=== PATIENT | male | born 1935 | race Caucasian/White ===

== ENCOUNTER 2017-04-05 20:04 | Emergency (ER) | payer MEDICARE ==
--- NOTE | 2017-04-05 20:10 | UC ---
Throat Pain/Nasal Tadeo HPI - HPI Summary HPI Summary: 82 YEAR OLD MALE PRESENTS WITH COMPLAINS OF INABILITY TO SWALLOW LIQUIDS AND SOLIDS. - History of Current Complaint Stated Complaint: THROAT COMPLAINT Time Seen by Provider: 04/05/17 20:09 Hx Obtained From: Patient Onset/Duration: Sudden Onset Severity: Severe Pain Scale Used: 0-10 Numeric - 5 Cough: Nonproductive Associated Signs & Symptoms: Positive: Dysphagia - Allergies/Home Medications Allergies/Adverse Reactions: Allergies Allergy/AdvReac Type Severity Reaction Status Date / Time No Known Allergies Allergy Verified 04/05/17 20:12 PMH/Surg Hx/FS Hx/Imm Hx Previously Healthy: Yes - Surgical History Surgical History: Yes Surgery Procedure, Year, and Place: 2008 BACK SURGERY FOR PINCHED NERVE, [facility] - Social History Alcohol Use: Rare Substance Use Type: None Smoking Status (MU): Never Smoked Tobacco Have You Smoked in the Last Year: No - Immunization History Most Recent Influenza Vaccination: Fall 2012 Most Recent Tetanus Shot: unknown Most Recent Pneumonia Vaccination: 3 or 4 years ago Review of Systems Constitutional: Negative Skin: Negative Eyes: Negative ENT: Sore Throat, Other - DYSPHAGIA Respiratory: Negative Cardiovascular: Negative Gastrointestinal: Negative Genitourinary: Negative Motor: Negative Neurovascular: Negative Musculoskeletal: Negative Neurological: Negative Psychological: Negative All Other Systems Reviewed And Are Negative: Yes Physical Exam Triage Information Reviewed: Yes Vital Signs Reviewed: Yes Eye Exam: Normal ENT: Positive: Pharyngeal erythema, Other: - UVULA SWELLING Dental Exam: Normal Neck exam: Normal Neck: Positive: 1 Respiratory Exam: Normal Cardiovascular Exam: Normal Abdominal Exam: Normal Musculoskeletal Exam: Normal Neurological Exam: Normal Psychological Exam: Normal Skin Exam: Normal Throat Pain/Nasal Course/Dx - Differential Dx/Diagnosis Provider Diagnoses: DYSPHAGIA. UVULA SWELLING Discharge - Discharge Plan Condition: Stable Disposition: HOME Patient Education Materials: Dysphagia (ED) Referrals: Ryan Ruth MD [Primary Care Provider] - If Needed Additional Instructions: PLEASE GO TO ER TO ASSESS INABILITY TO SWALLOW LIQUIDS AND SOLIDS.
[2017-04-05 20:27] VITALS: BP 175/86
== END 2017-04-05 20:30 | disposition home or self-care (01) ==
LOC: UCEAST 20:04
DX: R13.10 Dysphagia, unspecified (principal); K13.79 Other lesions of oral mucosa
CPT/HCPCS: 99211; G0463

== ENCOUNTER 2017-04-05 20:45 | Emergency (ER) | payer MEDICARE ==
[2017-04-05] MEDS ORDERED: Glucagon* 1 MG VIAL IV ONE (22:43)
[2017-04-05] MEDS ORDERED: NS 0.9% 1000 ML* 1,000 ML IV SCH (22:45)
--- NOTE | 2017-04-06 00:35 | ED ---
Sasha Mujica Alfonso, scribed for Saman Carpenter MD on 04/05/17 at 2234 . Complex/Multi-Sys Presentation - HPI Summary HPI Summary: This patient is an 82 year old M presenting from [facility] to [facility] accompanied by son with a chief complaint of I cant swallow since approximately 1800 today. The CC began while eating popcorn. The patient rates the pain 0/10 in severity. Symptoms aggravated and alleviated by nothing. Patient reports hic-burp ( hiccup and burping at the same time), and frosting at the mouth. Patient denies chest tightness, SOB, abdominal pain. He denies abdominal PSHx. PMHx of HTN. - History Of Current Complaint Chief Complaint: EDGeneral Time Seen by Provider: 04/05/17 22:18 Hx Obtained From: Patient, Family/Water Rights Specialist - Son Onset/Duration: Sudden Onset, Lasting Hours - 1600 today, Still Present Timing: Constant Severity Currently: Moderate Severity Initially: Moderate Aggravating Factor(s): Nothing. Alleviating Factor(s): Nothing. Associated Signs And Symptoms: Positive: Other - Patient reports hic-burp ( hiccup and burping at the same time), and frosting at the mouth. Patient denies chest tightness, SOB, abdominal pain. - Allergies/Home Medications Allergies/Adverse Reactions: Allergies Allergy/AdvReac Type Severity Reaction Status Date / Time No Known Allergies Allergy Verified 04/05/17 21:00 PMH/Surg Hx/FS Hx/Imm Hx Endocrine/Hematology History: Denies: Hx Diabetes Cardiovascular History: Reports: Hx Hypertension - CONTROL WITH MEDS Respiratory History: Reports: Hx Asthma - as a child no problems now Denies: Hx Chronic Obstructive Pulmonary Disease (COPD) Musculoskeletal History: Reports: Hx Back Problems - pinched nerve, surgery Sensory History: Reports: Hx Cataracts - BILATERAL, Hx Contacts or Glasses - GLASSES FOR READING Denies: Hx Hearing Aid Opthamlomology History: Reports: Hx Cataracts - BILATERAL, Hx Contacts or Glasses - GLASSES FOR READING - Surgical History Surgery Procedure, Year, and Place: 2008 BACK SURGERY FOR PINCHED NERVE, [facility] Hx Anesthesia Reactions: No - Immunization History Date of Tetanus Vaccine: Unk Date of Influenza Vaccine: Fall 2012 Infectious Disease History: No Infectious Disease History: Denies: Traveled Outside the [place] in Last 30 Days - Family History Known Family History: Negative: Diabetes - Social History Alcohol Use: Rare Substance Use Type: Reports: None Smoking Status (MU): Never Smoked Tobacco Have You Smoked in the Last Year: No Review of Systems ENT: Other - Positive I cant swallow," hic-burp (hiccup and burping at the same time), and frosting at the mouth. Positive: Other - Negative chest tightness. Negative: Shortness Of Breath Negative: Abdominal Pain All Other Systems Reviewed And Are Negative: Yes Physical Exam Triage Information Reviewed: Yes Vital Signs On Initial Exam: Initial Vitals Temp Pulse Resp BP Pulse Ox 98.1 F 63 16 161/73 98 04/05/17 20:55 04/05/17 20:55 04/05/17 20:55 04/05/17 20:55 04/05/17 20:55 Vital Signs Reviewed: Yes Appearance: Positive: Well-Appearing, No Pain Distress Skin: Positive: Warm, Skin Color Reflects Adequate Perfusion, Dry Head/Face: Positive: Normal Head/Face Inspection Eyes: Positive: EOMI, ARELI ENT: Positive: Normal ENT inspection Neck: Positive: Supple, Nontender Respiratory/Lung Sounds: Positive: Clear to Auscultation, Breath Sounds Present Cardiovascular: Positive: RRR Abdomen Description: Positive: Nontender, Soft Bowel Sounds: Positive: Present Musculoskeletal: Positive: Normal, Strength/ROM Intact Neurological: Positive: Normal, Sensory/Motor Intact, Alert, Oriented to Person Place, Time Psychiatric: Positive: Affect/Mood Appropriate - Sandra Coma Scale Coma Scale Total: 15 Diagnostics - Vital Signs Vital Signs Temp Pulse Resp BP Pulse Ox 04/05/17 22:00 81 156/81 99 04/05/17 21:59 98.5 F 97 16 166/74 98 04/05/17 21:30 64 166/74 99 04/05/17 21:06 64 98 04/05/17 21:04 161/69 04/05/17 20:55 98.1 F 63 16 161/73 98 - Laboratory Lab Statement: Any lab studies that have been ordered have been reviewed, and results considered in the medical decision making process. Complex Multi-Symp Course/Dx Course Of Treatment: PATIENT ATE 5 PIECES OF POPCORN, BURPED AND HICCUPED AT THE SAME TIME. FROTHY WHITE SPUTUM HAS BEEN COMING UP ANY TIME THE PATIENT TRIES TO DRINK WATER. NO CHEST PAIN, NO SOB. THE FROTH OCCURS A FEW MINUTES AFTER DRINKING. PATIENT WAS GIVEN GLUCAGON INED. WHEN THE PATIENT DRANK WATER HE BELIEVES SOME WATER GOES DOWN BUT, THE FROTHING THEN RECURRS. ESOPHAGEAL FB IS POSSIBLE BUT, PATIENT ONLY HAD 5 PIECES OF POPCORN. NO GI AVAILABLE TONIGHT. DISCUSSED TRANSFER TO ANOTHER FACILITY FOR GI EVAL VERSES GOING HOME AND SEENING GI TOMORROW IF SX PERSIST. PATIENT/SON PREFER TO GO HOME AND F/U TOMORROW. - Diagnoses Provider Diagnoses: Esophageal stricture Discharge - Discharge Plan Condition: Stable Disposition: HOME Patient Education Materials: Esophageal Stricture (ED) Referrals: Ryan Ruth MD [Primary Care Provider] - [facility] [Provider Group] Additional Instructions: FOLLOW UP WITH GASTROENTEROLOGY. IF YOUR SYMPTOMS CONTINUE IN THE AM, CALL GASTROENTEROLOGY. IF THEY ARE UNABLE TO SEE YOU TOMORROW, RETURN TO THE EMERGENCY DEPARTMENT. RETURN TO THE EMERGENCY DEPARTMENT FOR ANY WORSENING OF YOUR CONDITION; PAIN, SHORTNESS OF BREATH, YOU FEEL ILL OR QUESTIONS OR CONCERNS. The documentation as recorded by the Sasha staples Alfonso accurately reflects the service I personally performed and the decisions made by me, Saman Carpenter MD.
[2017-04-06 00:43] VITALS: BP 147/76
== END 2017-04-06 00:42 | disposition home or self-care (01) ==
LOC: ED 20:45
DX: K22.2 Esophageal obstruction (principal)
CPT/HCPCS: 99283; J1610

== ENCOUNTER 2017-04-06 12:18 | Emergency (ER) | payer MEDICARE ==
[2017-04-06] MEDS ORDERED: NS 0.9% 1000 ML* 1,000 ML IV SCH (13:15)
--- NOTE | 2017-04-06 14:20 | RAD ---
Indication: Dysphagia. 2 views of the chest including dual energy PA views demonstrate no mediastinal shift. Heart is of normal size and configuration. Lung pryor demonstrate no pleural fluid, pneumonia or pneumothorax. IMPRESSION: No active cardiopulmonary disease is noted.
[2017-04-06 15:15] LABS: Hematocrit 38 % (42-52); Hemoglobin 13.2 g/dl (14.0-18.0); Mean Corpuscular HGB Conc 34 g/dl (31-36); Mean Corpuscular Hemoglobin 32 pg (27-31); Mean Corpuscular Volume 94 fL (80-94); Mean Platelet Volume 8 um3 (7.4-10.4); Red Cell Distribution Width 13 % (10.5-15); White Blood Count 4.6 10^3/ul (3.5-10.8)
[2017-04-06] MEDS ORDERED: Midazolam* 1 MG/ML 10 ML VIAL (10 MG) ONE (15:15)
[2017-04-06] MEDS ORDERED: fentaNYL* 50 MCG/ML 2 ML VIAL (100 MCG VIAL) ONE (15:16)
[2017-04-06 15:37] LABS: Albumin 4.3 g/dL (3.2-5.2); BUN/Creatinine Ratio 23.3 (8-20); Calcium 9.1 mg/dL (8.6-10.3); EGFR African American 77.3 (>60); EGFR Non-African American 60.1 (>60); Globulin 2.3 g/dL (2-4); Potassium 4.1 mmol/L (3.5-5.0); Total Bilirubin 1.4 mg/dL (0.2-1.0); Total Protein 6.6 g/dL (6.4-8.9)
--- NOTE | 2017-04-06 19:10 | ED ---
Kenney Mujica Benjamin, scribed for Ramez Diaz MD on 04/06/17 at 1304 . Throat Pain/Nasal Congestion - HPI Summary HPI Summary: 82yo male c/o difficulty swallowing since yesterday evening. Pt had hiccup and burp at the same time yesterday around 5-6pm and started having throat pain after. Pt hasnt been able to swallow ever since. Pt cannot even swallow his own saliva. Pt was seen yesterday and was given fluids and muscle relaxer. Pt returns today due to continuing symptoms. FHX of CA. - History of Current Complaint Chief Complaint: EDGeneral Time Seen by Provider: 04/06/17 12:52 Hx Obtained From: Patient, Family/[employer] - son Onset/Duration: Still Present Severity: Moderate Associated Signs And Symptoms: Positive: Negative Cough: None - Allergies/Home Medications Allergies/Adverse Reactions: Allergies Allergy/AdvReac Type Severity Reaction Status Date / Time No Known Allergies Allergy Verified 04/06/17 12:21 Home Medications: Home Medications Aspirin EC Low Dose* [Ecotrin EC Low Dose 81 MG*] 81 mg PO DAILY 04/06/17 [ History Confirmed 04/06/17] amLODIPine TAB* [Norvasc 5 mg TAB*] 2.5 mg PO DAILY 04/06/17 [History Confirmed 04/06/17] PMH/Surg Hx/FS Hx/Imm Hx Endocrine/Hematology History: Denies: Hx Diabetes Cardiovascular History: Reports: Hx Hypotension, Hx Hypertension - CONTROL WITH MEDS Respiratory History: Reports: Hx Asthma - as a child no problems now Denies: Hx Chronic Obstructive Pulmonary Disease (COPD) Musculoskeletal History: Reports: Hx Back Problems - pinched nerve, surgery Sensory History: Reports: Hx Cataracts - BILATERAL, Hx Contacts or Glasses - GLASSES FOR READING Denies: Hx Hearing Aid Opthamlomology History: Reports: Hx Cataracts - BILATERAL, Hx Contacts or Glasses - GLASSES FOR READING - Surgical History Surgery Procedure, Year, and Place: 2008 BACK SURGERY FOR PINCHED NERVE, [facility] Hx Anesthesia Reactions: No - Immunization History Date of Tetanus Vaccine: Unk Date of Influenza Vaccine: Fall 2012 Infectious Disease History: No Infectious Disease History: Denies: Traveled Outside the [place] in Last 30 Days - Family History Known Family History: Positive: Other - multiple CA Negative: Hypertension, Diabetes - Social History Occupation: Retired Lives: With Family Alcohol Use: Rare Substance Use Type: Reports: None Smoking Status (MU): Never Smoked Tobacco Have You Smoked in the Last Year: No Review of Systems Constitutional: Negative Eyes: Negative Positive: Sore Throat, Other - throat pain, unable to swallow Cardiovascular: Negative Respiratory: Negative Gastrointestinal: Negative Genitourinary: Negative Musculoskeletal: Negative Skin: Negative Neurological: Negative Psychological: Normal All Other Systems Reviewed And Are Negative: Yes Physical Exam Triage Information Reviewed: Yes Vital Signs On Initial Exam: Initial Vitals Temp Pulse Resp BP Pulse Ox 98.8 F 74 16 157/72 97 04/06/17 12:21 04/06/17 12:21 04/06/17 12:21 04/06/17 12:21 04/06/17 12:21 Vital Signs Reviewed: Yes Appearance: Positive: Ill-Appearing - spitting his saliva in a bag Skin: Positive: Warm, Skin Color Reflects Adequate Perfusion Head/Face: Positive: Normal Head/Face Inspection Eyes: Positive: EOMI Neck: Positive: Supple, Nontender Respiratory/Lung Sounds: Positive: Clear to Auscultation, Breath Sounds Present Cardiovascular: Positive: RRR. Negative: Murmur Abdomen Description: Positive: Nontender Musculoskeletal: Positive: Normal, Strength/ROM Intact Neurological: Positive: Sensory/Motor Intact, Alert, Oriented to Person Place, Time, CN Intact II-III Psychiatric: Positive: Normal - [place] Coma Scale Coma Scale Total: 15 Diagnostics - Vital Signs Vital Signs Temp Pulse Resp BP Pulse Ox 04/06/17 12:50 97.8 F 67 17 162/75 98 04/06/17 12:21 98.8 F 74 16 157/72 97 - Laboratory Result Diagrams: 04/06/17 15:00 04/06/17 15:00 Lab Statement: Any lab studies that have been ordered have been reviewed, and results considered in the medical decision making process. - Radiology CXR Xray Interpretation: No Acute Changes Radiology Interpretation Completed By: Radiologist Re-Evaluation - Re-Evaluation First Eval Re-Evaluation Time: 18:39 Comment: the patient had food bolus removed from esophagus by GI specialist. he is still sleepy from sedation at this point. Second Eval Re-Evaluation Time: 19:07 Change: Improved Comment: The patient drank en entire glass of water. he got up and did a walking lap around the ER. The son feels comfortable with his father going home now. He is ready for discharge. EENT Course/Dx - Course Course Of Treatment: Discussed with Dr. Carter (GI) at 13:10. Food bolus removed by OMARI Garcia in the ER. DC to home. - Diagnoses Provider Diagnoses: Esophageal obstruction due to food impaction - Provider Notifications Discussed Care Of Patient With: Carlos Carter Time Discussed With Above Provider: 13:14 - He will come see the patient for evaluation Discharge - Discharge Plan Condition: Good Disposition: HOME Patient Education Materials: Moderate Sedation (ED), Food Impaction (ED), Esophageal Foreign Body (ED) Referrals: Ryan Ruth MD [Primary Care Provider] - Carlos Carter MD [Medical Doctor] - The documentation as recorded by the Kenney staples Benjamin accurately reflects the service I personally performed and the decisions made by , Ramez Diaz MD.
[2017-04-06 20:00] VITALS: BP 181/76
--- NOTE | 2017-04-07 01:39 | PRO ---
CC: Dr. Ruth * DATE OF PROCEDURE: 04/06/17 PROCEDURE: Upper endoscopy with esophageal food impaction removal. MEDICATIONS: Versed 6 mg IV and fentanyl 50 mcg IV. NARRATIVE: This is an 82-year-old gentleman who is quite healthy, who presents with the inability to swallow after yesterday. He states that he had an egg salad sandwich in the afternoon, felt well and then soon thereafter had an episode of hiccups and since that time has been unable to swallow. He presented to the emergency room last night where he was discharged and has had continued symptoms since then. Because of that, he has been sent back to the ER. He denies any pain or difficulty swallowing preceding this episode. Chest x-ray was performed and was normal. Due to this, urgent endoscopy is being carried out. PROBLEM IN DETAIL: After the procedure was discussed with the patient, risks and benefits were outlined, written consent was obtained. The patient was placed in the left lateral decubitus position and conscious sedation was administered. A video diagnostic gastroscope was inserted orally and passed into the esophagus. In the mid esophagus, an impaction of food was seen. Using the netted snare, we were able to remove the food impaction after several passes. After that, diagnostic endoscopy was carried out. We were able to view the esophagus, stomach, and duodenal bulb. The patient tolerated the procedure well and there were no immediate complications. DIAGNOSTIC FINDINGS: After the food impaction was removed, inspection of the esophagus demonstrated normal esophageal mucosa. There was no stricture or mass. The stomach was entered and upon retroflexion there was a hiatal hernia. The gastric mucosa was normal without any ulceration. The pylorus was normal. There were a couple of small erosions seen in the duodenal bulb, but no true ulceration. CONCLUSION: Removal of a food impaction of the esophagus, no underlying esophageal lesion. RECOMMENDATIONS: Results were discussed with the patient and his son. Better chewing was advocated. [id number]/[facility] #: [id number] [facility]
== END 2017-04-06 20:02 | disposition home or self-care (01) ==
LOC: ED 12:18
DX: K22.2 Esophageal obstruction (principal); R06.02 Shortness of breath
CPT/HCPCS: 36415; 71020; 80053; 83690; 85025; 85610; 85730; 99156; 99157; 99285; J2250; J3010

== ENCOUNTER → 2019-04-24 05:43 | Day surgery (SDC) | payer MEDICARE ==
[~2019-04-24 05:43] MED LIST: Acetaminophen IV 1GM/100ML * 100 ML ONE; Buffered Lidocaine 1% SYRIN* 1 ML/SYRINGE INTRADERM ONE; Bupivacaine 0.5% W/EPI SDV* 10 ML VIAL INJ ONE; DiMENhydriNATE IV* 50 MG/ML VIAL IV PUSH PRN; Famotidine IV* 10 MG/ML 2 ML (20 mg) ONE; Lidocaine 1% INJ* 10 MG/ML 30 ML SDV ONE; Lidocaine 2% PF * 5 ML VIAL ONE; Midazolam* 1 MG/ML 2 ML VIAL (2 MG) ONE; NS 0.9% 1000 ML** 1,000 ML IV SCH; Naloxone* 0.4 MG/ML 1 ML VIAL IV PRN; Ondansetron INJ* 2 MG/ML VIAL IV PRN; Propofol* 10 MG/ML 20 ML BTL ONE; ceFAZolin 2 GM in NS PREMIX(*) 2 GM/100 ML BAG IVPB ONE; fentaNYL* 50 MCG/ML 2 ML VIAL (100 MCG VIAL) IV PRN; fentaNYL* 50 MCG/ML 2 ML VIAL (100 MCG VIAL) ONE
[2019-04-24 10:13] VITALS: BP 155/77
--- NOTE | 2019-04-24 16:26 | OP ---
CC: Ryan Ruth MD* OPERATIVE REPORT: DATE OF OPERATION: 04/24/19 - SDS DATE OF : 33 SURGEON: Aamir Madison MD MEDIA AID: Sofi Sauer NP ANESTHESIOLOGIST: Dr. Freire. ANESTHESIA: Local MAC. PRE-OP DIAGNOSIS: Right inguinal hernia. POST-OP DIAGNOSIS: Right inguinal hernia. OPERATIVE PROCEDURE: Open repair of right inguinal hernia with mesh. ESTIMATED BLOOD LOSS: Minimal. IV FLUIDS: Crystalloid. SPECIMEN: Hernia sac. DRAINS: None. COMPLICATIONS: None. COUNTS: The instrument, needle, and sponge counts were correct. OPERATIVE FINDINGS: Indirect right inguinal hernia. DESCRIPTION OF PROCEDURE: The patient was brought to the operating room and placed on the table supine. He received appropriate intravenous antibiotics. He was positioned and padded appropriately and he was prepped and draped in the usual sterile fashion and a time-out was performed. Local anesthetic was infiltrated into the skin and soft tissue prior to making the incision. An oblique incision was created in the right groin and subcutaneous tissues were divided with cautery. Crossing veins were divided between clamps and ligated with 4-0 absorbable ties. The external oblique aponeurosis was identified and infiltrated with additional anesthetic. The aponeurosis was opened along the line of its fibers through the superficial ring. The contents of the inguinal canal were isolated with a 0.25-inch Larisa drain at the level of the pubic tubercle. A candidate for the ilioinguinal nerve appeared to have been torn and therefore this was ligated with 4-0 absorbable ties and shortened. An indirect hernia sac was identified. The cord structures were dissected free from this and preserved. The sac was just upon itself ligated with 2-0 Vicryl suture ligature, transected and the distal portion was submitted to Pathology. A [employer]tronic ProGrip right side inguinal hernia mesh was used for the repair. This was positioned to cover the entire floor of the canal and the locking mechanism secured around the cord. The external oblique aponeurosis was then run closed with 2-0 Vicryl. Sathish's was closed with 3-0 Vicryl interrupted. Skin was closed with 4-0 Monocryl in a running subcuticular fashion. Steri- Strips and dressings were applied. The patient tolerated this procedure well and transferred to Recovery stable. [id number]/[facility] #: [id number] LUIS MIGUEL
== END | disposition home or self-care (01) ==
LOC: OR 05:43
PROVIDERS: ATTEND Surgery
DX: K40.90 Unilateral inguinal hernia, without obstruction or gangrene, not specified as recurrent (principal); Z87.891 Personal history of nicotine dependence; G20 Parkinson's disease; R53.82 Chronic fatigue, unspecified; R42 Dizziness and giddiness; H93.13 Tinnitus, bilateral
CPT/HCPCS: 88302; C1781; J0690; J2250; J2704; J3010